=== PATIENT | female | born 1970 | race Caucasian/White ===

== ENCOUNTER → 2019-12-26 | Outpatient (CLI) | payer OTHER ==
[~2019-12-26] MED LIST: ALPR0.5T7 PO; ESTR50GE TP; HYDR12.517 PO; PROP80CA47 PO
== END | disposition home or self-care (01) ==
LOC: RAD 12:59
PROVIDERS: ATTEND Nurse Practitioner
DX: S92.351A Displaced fracture of fifth metatarsal bone, right foot, initial encounter for closed fracture (principal); X58.XXXA Exposure to other specified factors, initial encounter; Y93.89 Activity, other specified; Y92.89 Other specified places as the place of occurrence of the external cause; Y99.8 Other external cause status